=== PATIENT | female | born 1935 | race Caucasian/White ===

== ENCOUNTER 2017-02-22 18:13 | Emergency (ER) | payer OTHER ==
--- NOTE | ~2017-02-22 | CR127 ---
[facility]. [facility] A Service of [facility] & [facility] RADIOLOGY TEXT RESULTS PATIENT: TARA PATEL LOCATION: SED : 33 UNIT #: [id number] AGE: [address]: JASON SAUER SEX: F ORDER DR: [id number] [place] [id number] E MR#: [id number] Acc #: [id number] NAME: TARA PATEL : 1935 SEX: F STUDY DATE/TIME: 02/22/2017 19:14 UNIT: SED ROOM: STUDY DESCRIPTION: CR Foot Complete Min 3 View Rt Attending Physician: Jason Sauer Ordering Physician: Physician Non-Staff Primary Care Physician: Lindsay Pena M.D. MEDICAL IMAGING REPORT This report is preliminary unless electronic signature is present. EXAM Right foot 3 views HISTORY Foot and ankle and heel pain after fall today. FINDINGS Three views of the right foot demonstrate calcaneal flattening and probable comminuted fracture of the mid and posterior calcaneus. No fracture angulation is identified. No dislocation. Incidental accessory ossicle at the lateral base of the fifth metatarsal. Generalized demineralization. Mild multifocal degenerative changes. Dictated by... Clayton Pereyra M.D. THIS IS AN ELECTRONICALLY VERIFIED REPORT Clayton Pereyra M.D. at 02/23/2017 3:10 PM DFL/k[place] TD: 02/23/2017 07:37 JOB #: [id number] MEDICAL IMAGING REPORT Page 1 of 1
[~2017-02-22 18:13] MED LIST: FAMVIR500 MG PO; PERCOCET5/325 PO; PHENERGAN PO
== END 2017-02-22 20:45 | disposition home or self-care (01) ==
LOC: SED 18:13
DX: S92.001A Unspecified fracture of right calcaneus, initial encounter for closed fracture (principal); W10.9XXA Fall (on) (from) unspecified stairs and steps, initial encounter; Y92.828 Other wilderness area as the place of occurrence of the external cause
CPT/HCPCS: 29515; 73630; 99283